=== PATIENT | male | born 1990 | race Caucasian/White ===

== ENCOUNTER 2022-10-24 20:32 | Emergency (ER) | payer OTHER, SELFPAY ==
--- NOTE | ~2022-10-24 | XR_ITS ---
Supine and upright views of the abdomen Clinical history: Right ureteral stone Findings: Bowel gas pattern is nonspecific. No evidence for obstruction or free air. Left renal stone s measuring up to 3 mm. No definite right ureteral stone visualized radiographically. Multiple calcif ied pelvic phleboliths are present. Osseous structures are intact. Impression: Left nephrolithiasis, as detailed above. No definite right ureteral stone seen radiographically. Reviewed, dictated and finalized at location . Impression: Left nephrolithiasis, as detailed above. No definite right ureteral stone seen radiographically.
--- NOTE | ~2022-10-24 | CT_ITS ---
EXAMINATION: CT abdomen pelvis wo con DATE: 10/24/2022 22:16 INDICATION: R flank pain TECHNIQUE: Computed tomography (CT) of the abdomen and pelvis was performed without intravenous contr ast. Automated exposure control and iterative reconstruction technique were employed. The dose-length product was 202.47 mGy-cm. COMPARISON: None. FINDINGS: Lower thorax: Unremarkable Liver: Normal. Biliary/Gallbladder: Gallbladder is normal. No bile duct dilation. Pancreas: No mass or duct dilation. Spleen: Normal. Adrenals:No mass. Kidneys: Multiple bilateral nonobstructing calculi. Mild right caliectasis, pelviectasis, and proxima l ureterectasis. 4 mm stone in the mid right ureter as it crosses the iliac vessels. No suspicious ma ss. No left hydronephrosis. GI tract: No small or large bowel dilation. Appendix not confidently identified. Mesentery/Peritoneum: No ascites, mass, or free air. Retroperitoneum: No mass. Pelvis: Mild wall thickening in a partially distended urinary bladder. Soft Tissues: Soft tissues and body wall unremarkable. Bones: No acute osseous finding. IMPRESSION: 4 mm stone in the mid right ureter causing mild obstructive uropathy. Bilateral nephrolithiasis. Urin paula bladder wall thickening, may be secondary to inadequate distention or cystitis. Reviewed, dictated and finalized at location K. IMPRESSION: 4 mm stone in the mid right ureter causing mild obstructive uropathy. Bilateral nephrolithiasis. Urinary bladder wall thickening, may be secondary to inadequa te distention or cystitis.
[2022-10-24 20:58] VITALS: BP 143/96; PULSE 90; RESP 20; TEMP 36.6; O2SAT 100
--- NOTE | 2022-10-24 21:52 | ED.MALEGU ---
HPI - Male Genitourinary General Chief complaint: Urogenital-Male Stated complaint: flank pain Time Seen by Provider: 10/24/22 21:46 History of Present Illness HPI Narrative: Patient is a 32-year-old male here for evaluation of right flank pain x1 day. Patient states it starts in his right flank and radiates into his anterior groin. History of previous similar sensation when he had obstructive kidney stones that was required stenting several years ago. Has had blood in the urine. Passed several visible stones this morning. Has not taken any medicine for pain today. No fevers, dysuria, urgency, testicular pain, nausea or vomiting. Related Data Allergies Allergy/AdvReac Type Severity Reaction Status Date / Time prochlorperazine AdvReac Seizure Verified 10/24/22 21:50 [From Compazine] Review of Systems Review of Systems: Gen: Denies fevers or chills Eyes: Denies eye pain or visual change ENT: Denies congestion Respiratory: Denies shortness of breath or cough CV: Denies chest pain or palpitations GI: Denies abdominal pain nausea, emesis or diarrhea reports hematuria. Denies burning, urgency, frequency or hematuria Musculoskeletal: Reports flank pain Neuro: Denies numbness, tingling, weakness or focal weakness Skin: Denies rash Except as documented, all other systems reviewed and negative Exam Narrative: APPEARANCE: Uncomfortable appearing. Head: Normocephalic and atraumatic. EYES: PERRLA/EOMI, conjunctivae clear NOSE: No nasal drainage EARS: External ear normal in appearance THROAT: Oropharynx is clear. Mucous membranes are moist. NECK: Supple. No adenopathy, no masses. RESPIRATORY: Airway patent, respirations nonlabored. Clear to auscultation bilaterally, no rales, rhonchi, wheezing. CARDIOVASCULAR: Regular rate and rhythm without murmurs, rubs, or gallops. ABDOMINAL: Normoactive bowel sounds. Soft, nontender, nondistended. No rebound tenderness or guarding. MUSCULOSKELETAL: Extremities are warm and well-perfused. Moves all extremities well. No edema. NEURO: Normal speech. No focal neurologic deficits. SKIN: Skin is warm and dry. No rashes. PSYCHIATRIC: Normal affect/mood. Course Vital Signs Vital signs: Vital Signs Temperature 97.9 F 10/24/22 20:58 Pulse Rate 90 05/24/23 20:58 Respiratory Rate 20 10/24/22 20:58 Blood Pressure 143/96 H 10/24/22 20:58 Pulse Oximetry 100 10/24/22 20:58 Oxygen Delivery Room Air 10/24/22 20:58 Temperature 97.9 F 10/24/22 20:58 Pulse Rate 90 10/24/22 20:58 Respiratory Rate 20 10/24/22 20:58 Blood Pressure 143/96 H 10/24/22 20:58 Pulse Oximetry 100 10/24/22 20:58 Oxygen Delivery Room Air 10/24/22 20:58 MDM - Male Genitourinary MDM Narrative Medical decision making narrative: 31-year-old male here for evaluation of right flank pain with a history of kidney stones, states feels similar to previous. He has evidence of a 4 mm mid ureteral stone causing mild obstructive uropathy. Urine with 6-10 white blood cells and trace leuks but patient is not having dysuria, fevers, white count is normal at 9.2, not very concerning for UTI. Patient feeling improved after pain meds and feels ready to go home. I do not see the stone on the KUB. Will send home with urine strainer, antibiotics, pain meds, urology follow-up. We discussed return precautions and he voiced understanding. Lab Data 10/24/22 21:52 10/24/22 21:52 Labs: Lab Results 10/24/22 Range/Units 21:52 WBC 9.2 (4.5-10.0) K/mm3 RBC 4.81 (4.6-6.20) M/mm3 Hgb 14.3 (14.0-18.0) g/dL Hct 41.9 L (42.0-52.0) % MCV 87.1 (80-100) fl MCH 29.7 (26-34) pg MCHC 34.1 (32-36) g/dl RDW 13.6 (11.5-14.5) % Plt Count 257 (150-375) k/mm3 MPV 10.0 (7.4-10.4) fl Immature Gran % (Auto) 0.3 (0-0.5) % Neut % (Auto) 61.4 (45.5-73.1) % Lymph % (Auto) 30.0 (18.3-44.2) % [place] % (Auto) 7.7 (2.6-8.5) % Eos % (Auto) 0.
[2022-10-24 22:04] LABS: Appearance Urine Cloudy (Clear); Bacteria Urine None Seen /hpf; Bilirubin Urine Negative (Negative); Blood Urine 3+ (Negative); Color Urine Yellow (Yellow); Glucose Urine UA Negative (Negative); Ketones Urine Negative (Negative); Leukocyte Esterase Ur Trace LEU/UL (Negative); Nitrate Urine Negative (Negative); Non Pathogenic Casts 0-2; Protein Urine Trace mg/dL (Negative); RBC Urine >100 /hpf (0-2); Specific Grav Ur 1.015 (1.001-1.035); Squamous Epithelial Cell Urine None seen /hpf (Few)
[2022-10-24] MEDS: HYDROmorphone HCL INJ (*CRX) 1 MG/ML SYR IV PUSH (22:05)
[2022-10-24] MEDS: ONDANSETRON INJ 4 MG/2 ML VIAL IV PUSH (22:10)
[2022-10-24 22:15] LABS: Add Urine Microscopic? YES; Basophils Percent Auto 0.4 % (0.2-1.2); Eosinophils Percent Auto 0.2 % (0-4.4); Hematocrit 41.9 % (42.0-52.0); Hemoglobin 14.3 g/dL (14.0-18.0); Immature Granulocyte Absolute 0.03 K/mm3 (0.00-0.031); Immature Granulocyte Percent A 0.3 % (0-0.5); Lymphocytes Absolute Auto 2.77 K/mm3 (0.9-3.2); Mean Corpuscular HGB Conc 34.1 g/dl (32-36); Mean Corpuscular Hemoglobin 29.7 pg (26-34); Mean Corpuscular Volume 87.1 fl (80-100); Monocytes Absolute Auto 0.7 K/mm3 (0.1-0.6); Monocytes Percent Auto 7.7 % (2.6-8.5); Neutrophils Absolute Auto 5.7 K/mm3 (1.3-6.7); Neutrophils Percent Auto 61.4 % (45.5-73.1); Platelet Count Result 257 k/mm3 (150-375); Red Blood Count 4.81 M/mm3 (4.6-6.20); Red Cell Distribution Width 13.6 % (11.5-14.5); White Blood Count 9.2 K/mm3 (4.5-10.0)
[2022-10-24 22:25] LABS: Alanine Aminotransferase 33 U/L (6-50); Albumin Level 4.7 g/dL (3.5-5.1); Alkaline Phosphatase 94 U/L (38-126); Anion Gap 8 mmol/L (8-16); Aspartate Amino Transferase 38 U/L (17-59); Bilirubin,Total 0.4 mg/dL (0.2-1.3); Blood Urea Nitrogen 6 mg/dL (9-20); Calcium 9.1 mg/dL (8.4-10.2); Carbon Dioxide 27 mmol/L (22-30); Chloride 104 mmol/L (98-107); Estimated CRCL calculation 89 ml/min; Estimated Glomerular Filt Rate > 60; Glucose 87 mg/dL (65-110); Potassium 3.6 mmol/L (3.4-5.0); Sodium 139 mmol/L (137-145)
[2022-10-24] MEDS: KETOROLAC 15 MG/ML VIAL (*BKC) IV PUSH (23:22)
== END 2022-10-25 | disposition home or self-care (01) ==
LOC: ANHED 23:57
PROVIDERS: Preventive Medicine Aerospace Medicine; Emergency Provider Physician Assistant
DX: N13.9 Obstructive and reflux uropathy, unspecified (principal); N20.2 Calculus of kidney with calculus of ureter; Z87.442 Personal history of urinary calculi
CPT/HCPCS: 36415; 74018; 74176; 80053; 81001; 85025; 87086; 96374; 96375; 99284; J1170; J1885; J2405

== ENCOUNTER 2023-11-24 11:57 | Emergency (ER) | payer OTHER, SELFPAY ==
[2023-11-24] VITALS (27 sets, daily range): BP systolic 119–136; BP diastolic 82–92; PULSE 68–100; RESP 12–24; O2SAT 99–100
--- NOTE | ~2023-11-24 | CT_ITS ---
EXAMINATION: CTA chest PE protocol DATE: 11/24/2023 14:22 INDICATION: Chest heaviness. TECHNIQUE: Computed tomography angiography (CTA) of the chest was performed with 100 mL Omnipaque-350 intravenous contrast timed to evaluate the pulmonary arteries. Coronal maximum intensity projection 3D-reconstructions were created by the technologist. Automated exposure control and iterative reconst ruction technique were employed. The dose-length product was 167.76 mGy-cm. COMPARISON: CT abdomen and pelvis 10/24/2022 FINDINGS: There is mild scarring at the lung apices. No pleural effusion. The heart size is normal. N o pericardial effusion. There is no pulmonary embolus. The bones are unremarkable. IMPRESSION: 1. No pulmonary embolus. Reviewed, dictated and finalized at location E. IMPRESSION: 1. No pulmonary embolus.
--- NOTE | ~2023-11-24 | XR_ITS ---
EXAMINATION: XR chest 2V DATE: 11/24/2023 12:43 INDICATION: Chest and neck pain TECHNIQUE: frontal and lateral views of the chest were obtained. COMPARISON: Chest radiograph dated 11/06/2009 FINDINGS: The lungs remain clear with no focal airspace opacities, pulmonary edema, pleural effusion or pneumot horax. The cardiomediastinal silhouette is normal. Visualized bones and soft tissues are unremarkable . IMPRESSION: 1. Normal chest radiograph. Reviewed, dictated and finalized at location A. IMPRESSION: 1. Normal chest radiograph.
--- NOTE | 2023-11-24 12:06 | ECG_ITS ---
Test Date: 2023-11-24 12:11:33 Measurements Intervals Ward Rate: 82 P: 58 MI: 133 QRS: 72 QRSD: 89 T: 46 QT: 342 QTc: 401 Interpretive Statements SINUS RHYTHM NORMAL ELECTROCARDIOGRAM No previous ECG available for comparison Electronically Signed On 11-25-2023 07:14:56 CDT by Luis Ellsworth M.D.
[2023-11-24 12:21] LABS: Basophils Percent Auto 0.7 % (0.2-1.2); Eosinophils Percent Auto 0.3 % (0-4.4); Hematocrit 38.9 % (42.0-52.0); Hemoglobin 13.1 g/dL (14.0-18.0); Immature Granulocyte Absolute 0.01 K/mm3 (0.00-0.031); Immature Granulocyte Percent A 0.2 % (0-0.5); Lymphocytes Absolute Auto 1.79 K/mm3 (0.9-3.2); Lymphocytes Percent Auto 31.2 % (18.3-44.2); Mean Corpuscular HGB Conc 33.7 g/dl (32-36); Mean Corpuscular Volume 89.2 fl (80-100); Mean Platelet Volume 10.1 fl (7.4-10.4); Monocytes Absolute Auto 0.4 K/mm3 (0.1-0.6); Monocytes Percent Auto 6.8 % (2.6-8.5); Neutrophils Absolute Auto 3.5 K/mm3 (1.3-6.7); Neutrophils Percent Auto 60.8 % (45.5-73.1); Platelet Count Result 246 k/mm3 (150-375); Red Blood Count 4.36 M/mm3 (4.6-6.20); Red Cell Distribution Width 12.3 % (11.5-14.5); White Blood Count 5.7 K/mm3 (4.5-10.0)
[2023-11-24 12:30] LABS: Alanine Aminotransferase 24 U/L (6-50); Albumin Level 4.7 g/dL (3.5-5.1); Alkaline Phosphatase 61 U/L (38-126); Anion Gap 8 mmol/L (4-12); Aspartate Amino Transferase 34 U/L (17-59); Bilirubin,Total 0.4 mg/dL (0.2-1.3); Blood Urea Nitrogen 10 mg/dL (9-20); Calcium 9.9 mg/dL (8.4-10.2); Carbon Dioxide 26 mmol/L (22-30); Chloride 108 mmol/L (98-107); Estimated CRCL calculation 82 ml/min; Estimated Glomerular Filt Rate > 60; Glucose 140 mg/dL (65-110); Lipase 78 U/L (23-300); Potassium 3.6 mmol/L (3.4-5.0); Sodium 142 mmol/L (137-145)
[2023-11-24 12:36] LABS: INR 0.9; Prothrombin Time 12.8 Seconds (11.1-14.7)
[2023-11-24 12:37] LABS: Partial Thromboplastin Time 24.8 Seconds (22.3-36.8)
[2023-11-24 12:42] LABS: Troponin I < 0.012 ng/mL (0.000-0.034)
--- NOTE | 2023-11-24 13:18 | ED.CHESTPAIN ---
HPI - Chest Pain General Chief Complaint: Chest Pain Stated Complaint: feeling faint Time Seen by Provider: 11/24/23 12:34 History of Present Illness HPI narrative: 32-year-old male presenting to the emergency department for evaluation for muscle tightness and cramping after starting atorvastatin. Patient was recently admitted and had a basket procedure performed for his multiple kidney stones. Patient states he started on a cholesterol medication from the hospitalist. Patient states he is having increase muscular tightness and having some cramping in his lower legs. Related Data Allergies Allergy/AdvReac Type Severity Reaction Status Date / Time prochlorperazine AdvReac Seizure Verified 10/24/22 21:50 [From Compazine] Review of Systems Review of Systems: All systems reviewed & are unremarkable except as noted in HPI and below Exam Narrative: APPEARANCE: Well appearing, no pain, no distress, well-nourished. HEAD: normocephalic, atraumatic. EYES: PERRLA/EOMI, conjunctivae clear. NOSE: Normal no drainage EARS:TMS clear with good light reflex. THROAT: Pharynx clear, no exudate. NECK: Supple. No adenopathy, no masses. RESPIRATORY: Airway patent, respirations nonlabored. Clear to auscultation bilaterally, no rales, rhonchi, wheezing. CARDIOVASCULAR: Regular rate and rhythm without murmurs rubs or gallops. ABDOMINAL: Soft, nontender, nondistended, normal bowel sounds MUSCULOSKELETAL: Moves all extremities. Strength/ROM intact, No edema, No calf tenderness. NEURO: Alert. Cranial nerves II through XII intact. Grossly intact SKIN: Warm, dry. Normal Color Course Course Emergency Course: Patient felt improved with treatment. Patient was updated results of his workup patient was advised to stop taking atorvastatin Vital Signs Vital signs: Vital Signs Pulse Rate 93 11/24/23 11:58 Respiratory Rate 12 11/24/23 11:58 Blood Pressure 134/82 11/24/23 11:58 Pulse Oximetry 100 11/24/23 11:58 Oxygen Delivery Room Air 11/24/23 11:58 Pulse Rate 73 11/24/23 15:45 Respiratory Rate 19 11/24/23 15:45 Blood Pressure 136/92 H 11/24/23 14:01 Pulse Oximetry 100 11/24/23 15:45 Oxygen Delivery Room Air 11/24/23 12:08 MDM - Chest Pain MDM Narrative Medical decision making narrative: 32-year-old male presents to the emergency department for evaluation for body aches and fatigue after starting atorvastatin. Patient is afebrile with no leukocytosis and a stable hemoglobin. Patient has no acute abnormalities on his CMP. Patient's D-dimer is mildly elevated. CTA chest shows no evidence of pulmonary embolism. Patient had negative serial troponins and EKG shows normal sinus rhythm. On re-evaluation patient states he does feel significantly improved. Suspect this was an adverse reaction to the atorvastatin. Patient was advised to no longer take this medication. Patient will have close follow-up with his primary care physician. Lab Data Attestation: I reviewed the patient's lab results. 11/24/23 12:13 11/24/23 12:13 Labs: Lab Results 11/24/23 11/24/23 11/24/23 Range/Units 12:13 15:45 18:45 WBC 5.7 (4.5-10.0) K/mm3 RBC 4.36 L (4.6-6.20) M/mm3 Hgb 13.1 L (14.0-18.0) g/dL Hct 38.9 L (42.0-52.0) % MCV 89.2 (80-100) fl MCH 30.0 (26-34) pg MCHC 33.7 (32-36) g/dl RDW 12.3 (11.5-14.5) % Plt Count 246 (150-375) k/mm3 MPV 10.1 (7.4-10.4) fl Immature Gran % (Auto) 0.2 (0-0.5) % Neut % (Auto) 60.8 (45.5-73.1) % Lymph % (Auto) 31.2 (18.3-44.2) % [place] % (Auto) 6.8 (2.6-8.5) % Eos % (Auto) 0.3 (0-4.4) % Baso % (Auto) 0.7 (0.2-1.2) % Lymph # (Auto) 1.79 (0.9-3.2) K/mm3 [place]lan # (Auto) 0.4 (0.1-0.6) K/mm3 Eos # (Auto) 0.0 (0-0.3) K/mm3 Baso # (Auto) 0.0 (0.0-0.1) K/mm3 Abs Immat Gran (auto) 0.01 (0.00-0.031) K/mm3 Absolute Neuts (auto) 3.5 (1.3-6.7) K/mm3 Absolut
[2023-11-24] MEDS: SODIUM CHLORIDE 0.9% IV 1,000 ML 999 ML IV CONT (13:53)
[2023-11-24] MEDS: FAMOTIDINE 20 MG/2 ML VIAL IV PUSH (13:53)
[2023-11-24] MEDS: methylPREDNISolone SOD SUCC 125 MG VIAL IV PUSH (13:53)
[2023-11-24] MEDS: diphenhydrAMINE HCl INJ 50 MG/ML VIAL 25 MG IV PUSH (13:53)
[2023-11-24 13:56] LABS: D Dimer 0.49 ug/mL (<0.48)
--- NOTE | 2023-11-24 15:37 | ECG_ITS ---
Test Date: 2023-11-24 15:45:58 Measurements Intervals [place] Rate: 66 P: 31 MI: 137 QRS: 76 QRSD: 82 T: 60 QT: 369 QTc: 389 Interpretive Statements SINUS RHYTHM NORMAL ELECTROCARDIOGRAM Compared to ECG 11/24/2023 12:11:33 NO DIFFERENCE Electronically Signed On 11-25-2023 07:19:38 CDT by Luis Ellsworth M.D.
[2023-11-24 16:16] LABS: Troponin I < 0.012 ng/mL (0.000-0.034)
== END 2023-11-24 17:01 | disposition home or self-care (01) ==
PROVIDERS: Student in an Organized Health Care Education/Training Program; Emergency Provider Emergency Medicine
DX: R25.2 Cramp and spasm (principal); T46.6X5A Adverse effect of antihyperlipidemic and antiarteriosclerotic drugs, initial encounter
CPT/HCPCS: 36415; 71046; 71275; 80053; 83690; 84484; 85025; 85380; 85610; 85730; 93005; 96361; 96374; 96375; 99284; J1200; J2919; J7030; Q9967